=== PATIENT | female | born 1960 | race Caucasian/White ===

== ENCOUNTER → 2023-05-21 07:39 | Outpatient (REF) | payer OTHER, SELFPAY | LOC: RAD 07:39 | PROVIDERS: ATTENDING PHYSICIAN Family Medicine | DX: R10.84 Generalized abdominal pain (principal) | CPT/HCPCS: 74177; Q9967 ==

== ENCOUNTER → 2023-07-07 08:53 | Outpatient (REF) | payer OTHER, SELFPAY | LOC: RAD 08:53 | PROVIDERS: ATTENDING PHYSICIAN Internal Medicine Gastroenterology; FAMILY PHYSICIAN Family Medicine | DX: R19.4 Change in bowel habit (principal) | CPT/HCPCS: 74018 ==

== ENCOUNTER 2023-07-27 16:50 | Emergency (ER) | payer OTHER, SELFPAY ==
[2023-07-27 16:52] VITALS: BP 181/74
[2023-07-27 16:56] VITALS: BMI 20.7
[2023-07-27 17:00] VITALS: BP 160/78
[2023-07-27] MEDS: DECADRON 10 MG IV (17:08)
--- NOTE | 2023-07-27 17:21 | ED.GENMED ---
History of Present Illness
General
Chief Complaint: Allergic Reaction
Source: patient
Exam Limitations: none
Time Seen by Provider: 07/27/23 16:54
Travel History
Have you had any contact with someone who has COVID-19?: No
Do you have any symptoms of coronavirus? Fever > 100 degrees, chills, cough, shortness of breath, sore throat, loss of taste or smell, muscle aches, or headache?: No
History of Present Illness
History of Present Illness:
63-year-old female presents with possible allergic reaction. She developed swelling of the face difficulty breathing and swallowing about an hour prior to arrival. She was having trouble and called 911. Upon EMS arrival she was dyspneic and
sitting upright. They gave 0.3 of epi and 50 of Benadryl. She presents feeling improved. Per EMS she looks 95% better. Of note, patient restarted her lisinopril 3 days ago. She stopped this 3 weeks ago secondary to overall sensation of not
feeling well. She has been on lisinopril since the beginning of this year. There was no rash noted with this no vomiting.
Past History
Past History
ED Past Medical History: Psychiatric (Depression)
ED Past Surgical History: None
Social History
Tobacco: Non-smoker
Alcohol: Daily
Drug: None
Personal:
Phy Exam
Physical Exam
Physical Exam:
General: Well-appearing female no acute respiratory distress
HEENT: Normocephalic tongue is swollen uvula swollen no stridor no trismus no drooling
Heart: Regular rate and rhythm no murmurs
Lungs: Clear no wheeze
Extremities: No cyanosis
Course
Orders/Labs/Results
Orders:
Orders
07/27/23 17:04
Dexamethasone Sod Phosphate [Decadron] 10 mg IV NOW STA
07/27/23 20:23
Acetaminophen [Tylenol] 650 mg PO NOW STA
Gentamicin [Genoptic 0.3% Eye Drops] See Dose Instructions OPHTH NOW STA
Vital Signs
Initial and Last Documented VS:
Initial Vital Signs
Temp Pulse Resp BP Pulse Ox
98.2 F 105 18 181/74 100
07/27/23 16:52 07/27/23 16:52 07/27/23 16:52 07/27/23 16:52 07/27/23 16:52
Last Documented Vital Signs
Temp Pulse Resp BP Pulse Ox
98.2 F 94 17 147/71 98
07/27/23 16:52 07/27/23 19:45 07/27/23 19:45 07/27/23 19:10 07/27/23 19:45
MDM/Problems Addressed
Differential Diagnosis Includes:
Facial swelling tongue swelling. Consider allergic reaction versus angioedema
Patient already given epinephrine and Benadryl. Decadron ordered. Will continue to observe
*Critical Care Note
Total Time (30-74mins, 75-104mins- exclusive of procedures): Not Applicable
Update Note
Update Note:
Patient reexamined doing much better speech is clear vital signs stable. I do suspect angioedema potentially related to lisinopril. Advise she stop this medicine. Advise she follow-up with her family doctor. Prescription provided in the event of
recurrent reaction.
ED Attending Note
-
Portions of this chart may have been created with voice recognition software.� Occasional wrong word or��sound alike� substitutions may have occurred due to the inherent limitations of voice recognition software.
Discharge Plan
Departure
Patient Disposition: Home (Routine Discharge)
Date of Disposition: 07/27/23
Time of Disposition: 20:42
Patient with high blood pressure during this ER visit?: No
Discharge Problem:
Angioedema
Instructions: Adverse Drug Reactions, Adult (DC)
Prescriptions:
No Action
latanoprost 0.005 % Drops
1 drp BOTH EYES HS
olopatadine [Pataday Twice Daily Relief] 0.1 % Drops
1 drp BOTH EYES DAILYPRN PRN (Reason: eye irritation)
lisinopril 10 mg Tablet
10 mg PO QPM
naproxen sodium [Aleve] 220 mg Tablet
220 mg PO BID PRN (Reason: mild pain)
zolpidem 10 mg Tablet
5 mg PO HS
metformin 500 mg Tablet Extended Release 24hr
1,000 mg PO QPM
Cequa 0.09 % Dropperette
2 drp BOTH EYES Q12H
Patient Comments:
07/27/2023, prescribed 1 drp to both eyes Q12H but pt. applies 2 drp to both eyes Q12H.
Benefiber powder
1 tsp PO DAILY
Citrucel powder
1 dose PO BIDPRN PRN (Reason: constipation)
Patient Comments:
07/27/2023, one capful.
Colloid Of Silver [place]
2 spray LEFT EYE BIDPRN PRN (Reason: conjunctivitis)
Patient Comments:
07/27/2023, Colloid of Silver Throat and Nasal [place]; pt. applies 2 sprays to her left eye for conjunctivitis BIDPRN.
Referrals:
Rupert Shipley MD [Family Provider] -
Activity Restrictions/Additional Instructions:
Stop lisinopril. Please follow-up with your family doctor. Return if worse otherwise. Use drops into the left eye 1 drop 4 times a day
Interventions
Interventions:
*Risk Screen - Suicide Last Done: 07/27/23 17:04
*General Assessment Last Done: 07/27/23 17:04
*Neglect/Abuse Screening Last Done: 07/27/23 17:04
*ED COVID-19 Vaccine History Last Done: 07/27/23 17:04
ED- Cardiac Assessment Last Done: 07/27/23 17:04
ED- Pulmonary Assessment Last Done: 07/27/23 17:04
ED-Skin Assessment Last Done: 07/27/23 17:04
Discharge Date and Time
Print Language: IRAQI
[2023-07-27 19:10] VITALS: BP 147/71
[2023-07-27] MEDS: TYLENOL 650 MG PO (20:32)
[2023-07-27] MEDS: GENOPTIC 0.3% EYE DROPS 1 DROP OPHTH (20:32)
== END 2023-07-27 20:51 | disposition home or self-care (01) ==
LOC: EMR 16:50
PROVIDERS: EMERGENCY PHYSICIAN Student in an Organized Health Care Education/Training Program; FAMILY PHYSICIAN Family Medicine
DX: T78.3XXA Angioneurotic edema, initial encounter (principal); X58.XXXA Exposure to other specified factors, initial encounter
CPT/HCPCS: 99284; 96374

== ENCOUNTER → 2023-09-07 06:23 | Day surgery (SDC) | payer OTHER, SELFPAY | LOC: GI 06:23 | PROVIDERS: ATTENDING PHYSICIAN Internal Medicine Gastroenterology | DX: K52.9 Noninfective gastroenteritis and colitis, unspecified (principal); Z86.010 Personal history of colon polyps; K57.30 Diverticulosis of large intestine without perforation or abscess without bleeding; K64.8 Other hemorrhoids; K44.9 Diaphragmatic hernia without obstruction or gangrene; K31.7 Polyp of stomach and duodenum; K31.89 Other diseases of stomach and duodenum; R14.0 Abdominal distension (gaseous) | CPT/HCPCS: 45380; 43239; 88305; 88342 ==

== ENCOUNTER 2023-09-30 14:50 | Emergency (ER) | payer OTHER, SELFPAY ==
[2023-09-30] VITALS (12 sets, daily range): BP systolic 141–226; BP diastolic 65–109
[2023-09-30] MEDS: ADRENALIN 0.3 MG IM (15:11)
[2023-09-30] MEDS: BENADRYL 25 MG IV (15:12)
[2023-09-30] MEDS: PEPCID 20 MG IV (15:12)
[2023-09-30] MEDS: SOLU-MEDROL PF 125 MG IV (15:13)
--- NOTE | 2023-09-30 15:18 | ED.GENMED ---
History of Present Illness
<Jeremy Fernandez PA-C - Last Filed: 09/30/23 17:33>
General
Chief Complaint: Allergic Reaction
Source: patient and spouse
Time Seen by Provider: 09/30/23 15:05
History of Present Illness
History of Present Illness:
63-year-old female with past medical history of hypertension and prediabetes presenting to the emergency department for evaluation after she developed sudden onset difficulty breathing and sensation of tongue swelling similar to previous episode
back in July. Patient took 125 mg tablet of Benadryl and brought her to the ER for further evaluation. states that he forgot that patient had an EpiPen at home unfortunately did not use this prior to arrival. Patient stating she
is having some difficulty talking due to the swelling sensation and notes minimal relief with the 25 mg of Benadryl she did states that the last time this happened it was thought to be related to the lisinopril that she had been on but states she
has been taking this since July.
Past History
<Jeremy Fernandez PA-C - Last Filed: 09/30/23 17:33>
Past History
ED Past Medical History: HTN, NIDDM and Psychiatric (Depression)
ED Past Surgical History: Orthopedic and Other
Social History
Tobacco: Non-smoker
Alcohol: Daily
Drug: None
Personal:
Living: with family
Review of Systems
<Jeremy Fernandez PA-C - Last Filed: 09/30/23 17:33>
Review of Systems
All Other Systems: ROS reviewed and negative except as documented in HPI and ROS
Phy Exam
<Jeremy Fernandez PA-C - Last Filed: 09/30/23 17:33>
Physical Exam
Physical Exam:
GENERAL: Alert , appears uncomfortable, no tachypnea, no stridor, laying reclined
EYE: conjunctiva clear
NECK: Supple
ENT: o/p clr, mmm. Some mild edema to the tongue diffusely, posterior airway without any edema, no lip edema, no trismus or stridor
CARDIAC: Regular rate and rhythm
LUNGS: Clear breath sounds bilaterally, no acute respiratory distress, no wheezes/rales/rhonchi
NEUROLOGICAL: Alert and oriented
SKIN: Warm and dry, skin intact. Blotchy erythema along the anterior neck, lip and chin
MUSCULOSKELETAL: well perfused.
PSYCH: Normal and appropriate interaction.
Scores
<Jeremy Fernandez PA-C - Last Filed: 09/30/23 17:33>
Heart Failure Risk
Heart Failure Risk Score: Not Applicable
Heart Score for Chest Pain Patients
STEMI patient?: Not applicable
Withdrawal Assessment of Alcohol
Withdrawal Assessment Completed?: Not applicable
Course
<Jeremy Fernandez PA-C - Last Filed: 09/30/23 17:33>
Orders/Labs/Results
Orders:
Orders
09/30/23 15:08
Diphenhydramine [Benadryl] 50 mg .ROUTE .STK-MED ONE
EPINEPHrine PF [Adrenalin] 1 mg .ROUTE .STK-MED ONE
MethylPREDNISolone PF [Solu-Medrol Pf] 125 mg .ROUTE .STK-MED ONE
09/30/23 15:09
Diphenhydramine [Benadryl] 25 mg IV NOW STA
EPINEPHrine PF [Adrenalin] 0.3 mg IM NOW STA
Famotidine [Pepcid] 20 mg .ROUTE .STK-MED ONE
Famotidine [Pepcid] 20 mg IV NOW STA
MethylPREDNISolone PF [Solu-Medrol Pf] 60 mg IV NOW STA
09/30/23 15:11
MethylPREDNISolone PF [Solu-Medrol Pf] 125 mg IV NOW STA
09/30/23 15:39
Complete Blood Count/With Diff Urgent
Comprehensive Metabolic Panel Urgent
09/30/23 17:24
Acetaminophen [Tylenol] 1,000 mg PO NOW STA
Abnormal Lab Results
09/30/23
15:39
RBC 4.08 L 10^6/uL
(4.20-5.40)
Hct 36.3 L %
(37.0-47.0)
Plt Count 407 H 10^3/uL
(130-400)
Absolute Monos (auto) 0.7 H 10^3/uL
(0.1-0.6)
Chloride 95 L mmol/L
(98-107)
Glucose 146 H mg/dl
(70-99)
Calcium 10.3 H mg/dl
(8.4-10.2)
Albumin 5.3 H g/dl
(3.5-5.0)
09/30/23 15:39
09/30/23 15:39
Vital Signs
Initial and Last Documented VS:
Initial Vital Signs
Pulse Resp BP Pulse Ox
95 25 226/107 96
09/30/23 14:57 09/30/23 14:57 09/30/23 14:57 09/30/23 14:57
Last Documented Vital Signs
Pulse Resp BP Pulse Ox
90 18 158/75 98
09/30/23 16:00 09/30/23 16:00 09/30/23 16:00 09/30/23 16:00
<Leora Yang, DO - Last Filed: 09/30/23 15:42>
Orders/Labs/Results
Orders:
Orders
09/30/23 15:08
Diphenhydramine [Benadryl] 50 mg .ROUTE .STK-MED ONE
EPINEPHrine PF [Adrenalin] 1 mg .ROUTE .STK-MED ONE
MethylPREDNISolone PF [Solu-Medrol Pf] 125 mg .ROUTE .STK-MED ONE
09/30/23 15:09
Diphenhydramine [Benadryl] 25 mg IV NOW STA
EPINEPHrine PF [Adrenalin] 0.3 mg IM NOW STA
Famotidine [Pepcid] 20 mg .ROUTE .STK-MED ONE
Famotidine [Pepcid] 20 mg IV NOW STA
MethylPREDNISolone PF [Solu-Medrol Pf] 60 mg IV NOW STA
09/30/23 15:11
MethylPREDNISolone PF [Solu-Medrol Pf] 125 mg IV NOW STA
09/30/23 15:39
Complete Blood Count/With Diff Urgent
Comprehensive Metabolic Panel Urgent
09/30/23 17:24
Acetaminophen [Tylenol] 1,000 mg PO NOW STA
Abnormal Lab Results
09/30/23
15:39
RBC 4.08 L 10^6/uL
(4.20-5.40)
Hct 36.3 L %
(37.0-47.0)
Plt Count 407 H 10^3/uL
(130-400)
Absolute Monos (auto) 0.7 H 10^3/uL
(0.1-0.6)
Chloride 95 L mmol/L
(98-107)
Glucose 146 H mg/dl
(70-99)
Calcium 10.3 H mg/dl
(8.4-10.2)
Albumin 5.3 H g/dl
(3.5-5.0)
09/30/23 15:39
09/30/23 15:39
Vital Signs
Initial and Last Documented VS:
Initial Vital Signs
Pulse Resp BP Pulse Ox
95 25 226/107 96
09/30/23 14:57 09/30/23 14:57 09/30/23 14:57 09/30/23 14:57
Last Documented Vital Signs
Pulse Resp BP Pulse Ox
90 18 158/75 98
09/30/23 16:00 09/30/23 16:00 09/30/23 16:00 09/30/23 16:00
<Jeremy Fernandez PA-C - Last Filed: 09/30/23 17:33>
MDM/Problems Addressed
Differential Diagnosis Includes:
Angioedema unspecified, medication interaction, no concern for infection
MDM/Problems Addressed:
63-year-old female presenting to the emergency department for evaluation of suspected angioedema without clear etiology. Patient arrives complaining of tongue swelling and difficulty speaking. There is no stridor or trismus on exam. Patient did
take 25 mg of Benadryl prior to arrival. EpiPen administered in addition to 25 mg of Benadryl, Pepcid and Solu-Medrol. Will monitor closely. Disposition pending
<Jeremy Fernandez PA-C - Last Filed: 09/30/23 17:33>
*Pulse Oximetry
Patient hypoxic: no
*Account Underwriter Interpretation
Rate: tachycardiac
Rhythm: sinus
*Critical Care Note
Total Time (30-74mins, 75-104mins- exclusive of procedures): 30
comment:
Critical care statement: A total of 30 minutes of critical care time was provided for this patient. This includes management of unstable vital signs, evaluation of the patient at bedside, reviewing the patient's pertinent medical records, discussion
with consultants, review of old EKGs and review of pertinent medical records. This time with separate from time utilized to perform the aforementioned documented procedures
Data Reviewed
Review of Other/Old Records Reveals: Records
<Jeremy Fernandez PA-C - Last Filed: 09/30/23 17:33>
Patient Management
Escalation/DeEscalation of care consider admission/obs:
On multiple reevaluations patient continues without any signs of worsening symptoms and notes continued improvement. Tongue edema has resolved. I notified patient's primary care provider about presentation to the ER and he will ensure close
follow-up. I also provided the patient with information for an public health aide to follow-up given this is the second time without any specified etiology. Patient does note that she did have an apple earlier today and believes she may have had an apple
last time when the symptoms started. Patient was advised to stay away from apples until she is tested for possible allergy. Aware of return precautions to the ER. Stable for home. Prescriptions for prednisone and EpiPen were sent to pharmacy as
well.
ED Attending Note
<Jeremy Fernandez PA-C - Last Filed: 09/30/23 17:33>
-
Portions of this chart may have been created with voice recognition software.� Occasional wrong word or��sound alike� substitutions may have occurred due to the inherent limitations of voice recognition software.
<Leora Yang DO - Last Filed: 09/30/23 15:42>
ED Attending Note
Patient seen and examined by attending physician: Yes
I performed the substantive portion of visit, reviewed & personally made and approve the management plan that is documented in note by myself or GUILLERMO.: Yes
I performed a history and physical exam of patient and discussed management with resident, I reviewed resident's note and agree with documented findings and plan of care.: Yes
ED Attending Note:
Patient seen and evaluated at bedside, 63-year-old female with history of hypertension presenting for concern of allergic reaction. Prior to arrival, patient started to have tongue swelling and throat discomfort. Noted similar reaction in July, of
unclear etiology. At that time patient had been administered epinephrine with improvement of symptoms. Patient had previously been on an SIN inhibitor, which has since been discontinued. She has never had formal allergy testing. She denies any
new exposures, had an apple prior to arrival. Reports throat discomfort and some shortness of breath. Denies diffuse rash. Denies chest pain. She took Benadryl prior to arrival. Vital signs significant for hypertension.
On exam, patient in no story distress, however does have some swelling to the tongue with slight muffling of the voice. No oropharyngeal swelling. No stridorous breath sounds. No wheezing. Given tongue swelling and muffling of the voice, concern
again for anaphylaxis. This reason, plan for epinephrine and steroids as well as Pepcid and redosed Benadryl. Plan for continued close monitoring.
15:40 - After epinephrine administration, reports some improvement of symptoms. Will continue to monitor.
Discharge Plan
Departure
Patient Disposition: Home (Routine Discharge)
Date of Disposition: 09/30/23
Time of Disposition: 17:19
Patient with high blood pressure during this ER visit?: Yes
Discharge Problem:
Allergic reaction
Instructions: Anaphylaxis - Discharge instructions
Prescriptions:
New
prednisone 10 mg tablet
10 mg PO DIRECTED Qty: 21 0RF
Rx Instructions:
6 tabs day 1, 5 tabs day 2, 4 tabs day 3, 3 tabs day 4, 2 tabs day 5, 1 tab day 6
epinephrine [EpiPen] 0.3 mg/0.3 mL auto-injector
0.3 mg IM .STAT PRN (Reason: anaphylaxis) Qty: 1 0RF
No Action
latanoprost 0.005 % Drops
1 drp BOTH EYES HS
olopatadine [Pataday Twice Daily Relief] 0.1 % Drops
1 drp BOTH EYES DAILYPRN PRN (Reason: eye irritation)
lisinopril 10 mg Tablet
10 mg PO QPM
naproxen sodium [Aleve] 220 mg Tablet
220 mg PO BID PRN (Reason: mild pain)
zolpidem 10 mg Tablet
5 mg PO HS
metformin 500 mg Tablet Extended Release 24hr
1,000 mg PO QPM
Cequa 0.09 % Dropperette
2 drp BOTH EYES Q12H
Patient Comments:
07/27/2023, prescribed 1 drp to both eyes Q12H but pt. applies 2 drp to both eyes Q12H.
Benefiber powder
1 tsp PO DAILY
Citrucel powder
1 dose PO BIDPRN PRN (Reason: constipation)
Patient Comments:
07/27/2023, one capful.
Colloid Of Silver [place]
2 spray LEFT EYE BIDPRN PRN (Reason: conjunctivitis)
Patient Comments:
07/27/2023, Colloid of Silver Throat and Nasal [place]; pt. applies 2 sprays to her left eye for conjunctivitis BIDPRN.
Referrals:
Rupert Shipley MD [Family Provider] -
Mikki Negro MD [Active] -
(Diesel Engine Engineer
)
Interventions
Interventions:
*Risk Screen - Suicide Last Done: 09/30/23 15:11
*General Assessment Last Done: 09/30/23 15:11
*Neglect/Abuse Screening Last Done: 09/30/23 15:11
*ED COVID-19 Vaccine History Last Done: 09/30/23 15:11
ED- Cardiac Assessment Last Done: 09/30/23 15:11
ED- Pulmonary Assessment Last Done: 09/30/23 15:11
ED-Skin Assessment Last Done: 09/30/23 15:11
Discharge Date and Time
Print Language: MICRONESIAN
[2023-09-30 15:45] LABS: % Basophils 0.7 % (0-2); % Eosinophils 2.5 % (0-6); % Immature Granulocytes 0.2 % (0-0.5); % Lymphocytes 31.3 % (20.5-51.1); % Monocytes 7.4 % (1.7-9.3); % Neutrophils 57.9 % (42.2-75.2); Absolute Basophils 0.1 10^3/uL (0-0.2); Absolute Eosinophils 0.2 10^3/uL (0-0.7); Absolute Lymphocytes 2.9 10^3/uL (1.2-3.4); Absolute Monocytes 0.7 10^3/uL (0.1-0.6); Absolute Neutrophils 5.3 10^3/uL (1.4-6.5); Hematocrit 36.3 % (37.0-47.0); Hemoglobin 12.4 g/dL (12.0-16.0); Mean Corp Hgb Conc. 34.2 g/dL (33.0-37.0); Mean Corpuscular Hgb 30.4 pg (27.0-31.0); Mean Platelet Volume 10.4 fL (7.4-10.4); Nucleated Red Blood Cells % 0 %; Platelet Count 407 10^3/uL (130-400); Red Blood Cell Count 4.08 10^6/uL (4.20-5.40); Red Cell Dist. Width 13.1 % (11.5-14.5); White Blood Cell Count 9.2 10^3/uL (4.8-10.8)
[2023-09-30 16:00] LABS: ALT (SGPT) 19 U/L (0-35); AST (SGOT) 34 U/L (14-36); Albumin 5.3 g/dl (3.5-5.0); Alkaline Phosphatase 100 U/L (38-126); Blood Urea Nitrogen 14 mg/dl (7-17); Calcium 10.3 mg/dl (8.4-10.2); Carbon Dioxide 24 mmol/L (22-30); Chloride 95 mmol/L (98-107); Glucose 146 mg/dl (70-99); Potassium 3.8 mmol/L (3.5-5.1); Sodium 135 mmol/L (135-145); Total Bilirubin 0.7 mg/dl (0.2-1.3); Total Protein 7.9 g/dl (6.3-8.2); eGFR > 60.00
[2023-09-30] MEDS: TYLENOL 1000 MG PO (17:44)
== END 2023-09-30 18:45 | disposition home or self-care (01) ==
LOC: EMR 14:50
PROVIDERS: Physician Assistant Medical; EMERGENCY PHYSICIAN Student in an Organized Health Care Education/Training Program; FAMILY PHYSICIAN Family Medicine
DX: T78.40XA Allergy, unspecified, initial encounter (principal); R22.0 Localized swelling, mass and lump, head; R06.02 Shortness of breath; R47.9 Unspecified speech disturbances; I10 Essential (primary) hypertension; Z88.2 Allergy status to sulfonamides
CPT/HCPCS: 99291; 96374; 96375 ×2; 96372; 80053; 85025

== ENCOUNTER → 2024-03-01 07:43 | Outpatient (REF) | payer OTHER, SELFPAY | LOC: RAD 07:43 | PROVIDERS: ATTENDING PHYSICIAN Physician Assistant; FAMILY PHYSICIAN Family Medicine | DX: R68.81 Early satiety (principal) | CPT/HCPCS: 78264; A9541 ==

== ENCOUNTER → 2024-05-29 13:16 | Outpatient (REF) | payer OTHER, SELFPAY | LOC: HWWDC 13:16 | PROVIDERS: ATTENDING PHYSICIAN Nurse Practitioner Adult Health; FAMILY PHYSICIAN Family Medicine; REFERRING PHYSICIAN Nurse Practitioner Family | DX: Z12.31 Encounter for screening mammogram for malignant neoplasm of breast (principal); Z80.3 Family history of malignant neoplasm of breast; M81.0 Age-related osteoporosis without current pathological fracture; E11.9 Type 2 diabetes mellitus without complications; E04.1 Nontoxic single thyroid nodule; R53.83 Other fatigue | CPT/HCPCS: 76536; 77063; 77067; 77080 ==

== ENCOUNTER → 2024-05-31 07:06 | Outpatient (REF) | payer OTHER, SELFPAY | LOC: MRI 3T 07:06 | PROVIDERS: ATTENDING PHYSICIAN Family Medicine | DX: R51.9 Headache, unspecified (principal) | CPT/HCPCS: 70551 ==

== ENCOUNTER 2024-06-06 12:03 | Inpatient (IN) | payer OTHER, SELFPAY ==
[2024-06-06 06:35] VITALS: BP 160/85
--- NOTE | 2024-06-06 07:15 | ED.GENMED ---
History of Present Illness
General
Chief Complaint: Abnormal Lab Value
Source: patient, records and spouse
Exam Limitations: none
Time Seen by Provider: 06/06/24 06:43
Nursing documentation reviewed up to this point in time: agreed with
History of Present Illness
History of Present Illness:
64-year-old female hypertension type II diabetic anxiety depression presents with subacute onset of dizziness confusion since February of this year, this diagnosed with low sodium managed by PCP SSRI was stopped, symptoms persisted had an MRI of the
brain which was unremarkable no fevers, no cough, nondrinker non-smoker, patient outpatient blood work sodium 123 PCP referred to the ER
Past History
Past History
ED Past Medical History: HTN, NIDDM and Psychiatric (Depression)
ED Past Surgical History: Orthopedic and Other
Social History
Tobacco: Non-smoker
Alcohol: Occasional
Drug: None
Personal:
Living: with family
Employment: Employed
Review of Systems
Review of Systems
All Other Systems: Not applicable
Constitutional: Reports fatigue; Denies fever
EENT: Reports no symptoms
Respiratory: Reports no symptoms
Cardiac: Reports no symptoms
ABD/GI: Reports no symptoms
: Reports no symptoms
Neurological: Reports dizzy and weakness
Endocrine: Reports no symptoms
Phy Exam
Physical Exam
Physical Exam:
Physical Exam
General: no apparent distress, not acutely ill
Neck: No JVD
Heart: s1/s2 regular rate and rhythm, no murmur. equal radial pulses.
Lungs: no acute respiratory distress. clear bilaterally
Abdomen: Nontender
Neuro: alert and oriented. Slightly confused, moves all extremities
Skin: no rash
Psychiatric: well kept. interactive and cooperative
Extremities: no edema. No edema
Course
Orders/Labs/Results
Orders:
Orders
06/06/24 06:56
CR Chest - 2 Views Urgent
Comment:
Reason For Exam: low Na
06/06/24 06:57
Electrocardiogram (*1) Urgent
Reason for Study: QTc Monitoring
EKG- Treatment ONCE
06/06/24 07:03
Complete Blood Count/With Diff Urgent
Comprehensive Metabolic Panel Urgent
Cortisol, Random Urgent
Serum Osmolality Urgent
TSH Urgent
06/06/24 08:03
NEPHROLOGY CONSULT Routine
Consulting Provider: Rony Prieto
Was physician already notified: Yes
06/06/24 08:51
Osmolality, Random Urine Urgent
Date Specimen was Collected: 06/06/24
Time Specimen was Collected: 08:38
Urine Sodium Urgent
Date Specimen was Collected: 06/06/24
Time Specimen was Collected: 08:38
Abnormal Lab Results
06/06/24 06/06/24
07:03 08:51
RBC 3.82 L 10^6/uL
(4.20-5.40)
Hgb 11.7 L g/dL
(12.0-16.0)
Hct 33.1 L %
(37.0-47.0)
Plt Count 401 H 10^3/uL
(130-400)
Abs Immat Gran (auto) 0.1 H 10^3/uL
(0-0.05)
Absolute Monos (auto) 0.7 H 10^3/uL
(0.1-0.6)
Immature Gran % 0.8 H %
(0-0.5)
Sodium 127 L mmol/L
(135-145)
Potassium 5.2 H mmol/L
(3.5-5.1)
Chloride 93 L mmol/L
(98-107)
Glucose 197 H mg/dl
(70-99)
Serum Osmolality 271 L mOsm/kg
(275-300)
Urine Osmolality 185 L mOsm/kg
(300-900)
06/06/24 07:03
06/06/24 07:03
Vital Signs
Initial and Last Documented VS:
Initial Vital Signs
Temp Pulse Resp BP Pulse Ox
98 F 68 18 160/85 100
06/06/24 06:35 06/06/24 06:35 06/06/24 06:35 06/06/24 06:35 06/06/24 06:35
Last Documented Vital Signs
Temp Pulse Resp BP Pulse Ox
98 F 68 16 165/78 100
06/06/24 06:35 06/06/24 08:52 06/06/24 08:52 06/06/24 08:52 06/06/24 08:52
MDM/Problems Addressed
Differential Diagnosis Includes:
SIADH, water intoxication medication effect iatrogenic
MDM/Problems Addressed:
Presumed low sodium
Chronic conditions affecting care: DM, HTN and Psychiatric illness
Acute Exacerbation and/or Progression of Chronic Illness: DM, HTN and Psychiatric illness
*Radiology
Radiology exam reviewed: preliminary read by ED provider
*Pulse Oximetry
Patient hypoxic: no
*EKG
Interpretation: normal
Comparison EKG: no comparison EKG present
Heart Rate: 78
Rate: normal
Rhythm: sinus
Ischemia: no ischemia
*Risk Consultant Interpretation
Rate: normal
Interpretation: normal
Heart Rate: 78
Rhythm: sinus
*Critical Care Note
Total Time (30-74mins, 75-104mins- exclusive of procedures): Not Applicable
Data Reviewed
Review of Other/Old Records Reveals: Labs
Source: patient and spouse
ED Attending Note
-
Portions of this chart may have been created with voice recognition software.� Occasional wrong word or��sound alike� substitutions may have occurred due to the inherent limitations of voice recognition software.
Discharge Plan
Departure
Patient Disposition: Admit
Date of Disposition: 06/06/24
Time of Disposition: 08:16
Admit to: Med/Surg
Presentation/result/management discussed w/ accepting MD/DO: Hospitalist
Patient with high blood pressure during this ER visit?: Yes
Condition: Fair
Discharge Problem:
Acute hyponatremia
Prescriptions:
No Action
latanoprost 0.005 % Drops
1 drp LEFT EYE HS
zolpidem 10 mg Tablet
10 mg PO HS
metformin 500 mg Tablet Extended Release 24hr
1,000 mg PO QPM
Theragen Tablet
1 tab PO DAILY
amlodipine [Norvasc] 2.5 mg Tablet
2.5 mg PO DAILY
Flarex 0.1 % Drops,Suspension
1 drp BOTH EYES DAILY
valsartan 160 mg Tablet
160 mg PO DAILY
Refresh Optive 0.5-0.9 % Drops
1 drp BOTH EYES TID
Referrals:
Rupert Shipley MD [Family Provider] -
Interventions
Interventions:
*Risk Screen - Suicide Last Done: 06/06/24 06:35
*General Assessment Last Done: 06/06/24 07:14
*Neglect/Abuse Screening Last Done: 06/06/24 06:35
*ED- Fall Risk Assessment Last Done: 06/06/24 07:14
*ED COVID-19 Vaccine History Last Done: 06/06/24 06:40
Discharge Date and Time
Print Language: SINHALA
[2024-06-06 07:19] LABS: % Basophils 1.1 % (0-2); % Eosinophils 1.5 % (0-6); % Immature Granulocytes 0.8 % (0-0.5); % Lymphocytes 20.9 % (20.5-51.1); % Monocytes 8.7 % (1.7-9.3); Absolute Basophils 0.1 10^3/uL (0-0.2); Absolute Eosinophils 0.1 10^3/uL (0-0.7); Absolute Immature Granulocytes 0.1 10^3/uL (0-0.05); Absolute Lymphocytes 1.8 10^3/uL (1.2-3.4); Absolute Monocytes 0.7 10^3/uL (0.1-0.6); Absolute Neutrophils 5.6 10^3/uL (1.4-6.5); Hematocrit 33.1 % (37.0-47.0); Hemoglobin 11.7 g/dL (12.0-16.0); Mean Corp Hgb Conc. 35.3 g/dL (33.0-37.0); Mean Corpuscular Hgb 30.6 pg (27.0-31.0); Mean Corpuscular Volume 86.6 fL (81.0-99.0); Mean Platelet Volume 9.6 fL (7.4-10.4); Nucleated Red Blood Cells % 0 %; Platelet Count 401 10^3/uL (130-400); Red Blood Cell Count 3.82 10^6/uL (4.20-5.40); Red Cell Dist. Width 12.2 % (11.5-14.5); White Blood Cell Count 8.4 10^3/uL (4.8-10.8)
[2024-06-06 07:34] LABS: ALT (SGPT) 19 U/L (0-35); AST (SGOT) 23 U/L (14-36); Albumin 4.3 g/dl (3.5-5.0); Alkaline Phosphatase 77 U/L (38-126); Blood Urea Nitrogen 11 mg/dl (7-17); Carbon Dioxide 27 mmol/L (22-30); Chloride 93 mmol/L (98-107); Glucose 197 mg/dl (70-99); Potassium 5.2 mmol/L (3.5-5.1); Sodium 127 mmol/L (135-145); Total Bilirubin 0.6 mg/dl (0.2-1.3); Total Protein 6.8 g/dl (6.3-8.2); eGFR > 60.00
[2024-06-06 08:04] LABS: TSH 1.94 uIU/ml (0.47-4.68)
--- NOTE | 2024-06-06 08:19 | HPS.HSE ---
Family Physician
-
Family Physician: Rupert Shipley
Chief Complaint
-
Low sodium
History of Present Illness
64-year-old female hypertension type II diabetic anxiety depression presents with subacute onset of dizziness confusion since February of this year, diagnosed with low sodium was managed by PCP, SSRI was stopped a month ago, symptoms persisted had an
MRI of the brain which was unremarkable no fevers, no cough, nondrinker non-smoker, patient outpatient blood work sodium 123 PCP referred to the ER. Retested 127 here corrected for hyperglycemia, 129. Mild Hyperkalemia 5.2 noted. Patient also
endorses history polydipsia polyuria. Reports significant stressors in life including sister recently diagnosed with cancer. also has notices decline in cognitive function over past 6 month.
Medical History
Past Medical History
Past Medical History: Reports Other (as above)
Past Surgical History: Reports Other (as abvoe)
Social History
Tobacco: Non-smoker
Alcohol: Occasional
Drug: None
Personal:
Living: With Family
Employment: Employed
Family History
Family History: Not pertinent (reviewed)
Allergies / Home Medications
Allergies reflects when Allergies were last updated in [facility]
Home Medications with original date entered in [facility]
Allergy/Medication List:
Allergies
Allergy/AdvReac Type Severity Reaction Status Date / Time
apple Allergy Anaphylaxis Verified 06/06/24 06:38
Sulfa (Sulfonamide Allergy Hives Verified 06/06/24 06:38
Antibiotics)
Home Medications
latanoprost 0.005 % eye drops 1 drp LEFT EYE HS 07/27/23
metformin 500 mg tablet,extended release 24hr (osmotic) 1,000 mg PO QPM 07/27/23
zolpidem 10 mg tablet 10 mg PO HS 07/27/23
amlodipine 2.5 mg tablet (Norvasc) 2.5 mg PO DAILY 06/06/24
carboxymethylcellulose 0.5 %-glycerin 0.9 % eye drops (Refresh Optive) 1 drp BOTH EYES TID 06/06/24
fluorometholone acetate 0.1 % eye drops,suspension (Flarex) 1 drp BOTH EYES DAILY 06/06/24
therapeutic multivitamin 1 tab PO DAILY 06/06/24
valsartan 160 mg tablet 160 mg PO DAILY 06/06/24
Review of Systems
-
A 12 point ROS was completed and negative except as noted: Yes
Constitutional: Reports Other (As below)
Physical Exam
Vital Signs
Vital Signs
Temp Pulse Resp BP Pulse Ox
98 F 68 16 160/85 100
06/06/24 06:35 06/06/24 06:35 06/06/24 08:11 06/06/24 06:35 06/06/24 06:35
Physical Exam
General: Other (As below)
Laboratory Results
-
06/06/24 07:03
06/06/24 07:03
Laboratory Results
Total Bilirubin 0.6 mg/dl (0.2-1.3) 06/06/24 07:03
AST 23 U/L (14-36) 06/06/24 07:03
ALT 19 U/L (0-35) 06/06/24 07:03
Alkaline Phosphatase 77 U/L (38-126) 06/06/24 07:03
Impression/Plan
-
ROS
General: Denies fever chills night sweats unexpected weight loss
Neuro: Denies seizure shaking loss of consciousness dizziness vertigo
Psych: Reports anxiety depression intermittent confusion
Endocrine: Reports polyuria polydipsia
HEENT: Denies blindness visual disturbances epistaxis
Pulmonary: denies coughing hemoptysis sneezing sob dyspnea on exertion
Cardiovascular: denies chest pain palpitations leg swelling
Hematology: denies signs symptoms of anemia easy bruising/bleeding
Gastrointestinal: denies nausea vomiting diarrhea constipation hematemesis hematochezia melena
Genito-Urinary: denies retention incontinence dysuria
Musculoskeletal: denies joint pain weakness
Dermatology: denies rash laceration bruising
Physical Exam
General: No pallor, cyanosis, or jaundice.
HEENT: Throat clear. PERRLA Normocephalic atraumatic
NECK: Supple. No JVD Carotid Bruits
RESPIRATORY: Lungs clear to auscultation. No crackles wheezes stridor
CVS: S1, S2 normal. RRR. No murmur, rub or gallop.
ABDOMEN: Soft, non-tender. No distension. BS+/normal.
EXTREMITIES: No peripheral cyanosis or edema.
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 Conversant coherent
IMPRESSION:
64-year-old female hypertension type II diabetic anxiety depression presents with subacute onset of dizziness confusion since February of this year, diagnosed with low sodium was managed by PCP, SSRI was stopped a month ago, symptoms persisted had an
MRI of the brain which was unremarkable no fevers, no cough, nondrinker non-smoker, patient outpatient blood work sodium 123 PCP referred to the ER. Retested 127 here corrected for hyperglycemia, 129. Mild Hyperkalemia 5.2 noted. Patient also
endorses history polydipsia polyuria. Reports significant stressors in life including sister recently diagnosed with cancer. also has notices decline in cognitive function over past 6 month.
PLAN:
#Hyponatremia
TeleMed
Nephro eval
Fluid restriction
Hypertonic saline as per nephro
# Hypertension
#Mild hyperkalemia
Monitor K
Hold home valsartan
Resume home amlodipine with holding parameters
#Diabetes
Update A1c
Low-dose sliding scale
Continue home med metformin
#Anxiety depression
#Question possible pseudodementia
Continue home bedtime zolpidem
P.o. Ativan as needed anxiety
DVT prophylaxis Lovenox
Full code
Discussed with patient and patient's Johnson
I spent a total of 80 minutes with the patient or on the floor. More than 50% of this time involved counseling and coordination of care.
[2024-06-06 08:33] LABS: Osmolality Serum 271 mOsm/kg (275-300)
[2024-06-06 08:52] VITALS: BP 165/78
[2024-06-06 09:02] LABS: Cortisol, Random 22.4 ug/dl
[2024-06-06 09:04] LABS: Osmolality Urine 185 mOsm/kg (300-900)
[2024-06-06 09:15] LABS: Urine Sodium 35 mmol/L (30-90)
[2024-06-06] MEDS: SODIUM CHLORIDE 3% 250 IV (11:13)
--- NOTE | 2024-06-06 11:13 | W.CON.NEPH ---
Consultation
-
Date/Time Consultation Requested: 06/06/2024 10 AM
Date/Time Consultation Performed: 06/06/2024 11 AM
Requesting Provider: Dr. Coleman
Performing Provider: Dr. Prieto
Reason for Consultation: Hyponatremia
Medical History
-
Chief Complaint: Hyponatremia
History of Present Illness:
This is a 64-year-old female who has hypertension on a multidrug regimen typically well-controlled, significant anxiety previously on SSRI therapy which did not impact her anxiety, prediabetes on metformin therapy. Earlier this year she says that
she was told by her primary that her sodium level was low, noted at 127. It was believed that this may have been due to her antidepressant therapy and it was modified. However follow-up blood work had shown sodium level to have dropped to 124 and
she was sent to the hospital for treatment. Her also notes that she has been more confused lately as well. She does have a fair amount of fluid intake each day, close to 90 ounces between wine, coffee, smoothie, water. She has no pain or
nausea or vomiting. She does not use NSAIDs.
Past Medical History
Hypertension
Anxiety
Prediabetes
Atrophic vaginitis
Hyperlipidemia
Thyroid nodule
Glaucoma
Toe surgery
Social History
Tobacco: Non-Smoker
Alcohol: None
Family History
Family History: Not Pertinent
Allergies / Home Medications
Allergy/AdvReac Type Severity Reaction Status Date / Time
apple Allergy Anaphylaxis Verified 06/06/24 06:38
Sulfa (Sulfonamide Allergy Hives Verified 06/06/24 06:38
Antibiotics)
�Medication �Instructions �Recorded �Confirmed �Type
latanoprost 0.005 % eye drops 1 drp LEFT EYE HS 07/27/23 06/06/24 History
metformin 500 mg tablet,extended 1,000 mg PO QPM 07/27/23 06/06/24 History
release 24hr (osmotic)
zolpidem 10 mg tablet 10 mg PO HS 07/27/23 06/06/24 History
amlodipine 2.5 mg tablet (Norvasc) 2.5 mg PO DAILY 06/06/24 06/06/24 History
carboxymethylcellulose 0.5 1 drp BOTH EYES TID 06/06/24 06/06/24 History
%-glycerin 0.9 % eye drops
(Refresh Optive)
fluorometholone acetate 0.1 % eye 1 drp BOTH EYES DAILY 06/06/24 06/06/24 History
drops,suspension (Flarex)
therapeutic multivitamin 1 tab PO DAILY 06/06/24 06/06/24 History
valsartan 160 mg tablet 160 mg PO DAILY 06/06/24 06/06/24 History
Review of Systems
-
Confusion, poor appetite, 5 pound loss in 6 months
All other systems: Negative unless noted
Physical Exam
Vital Signs
Vital Signs
Temp Pulse Resp BP Pulse Ox
98 F 68 16 165/78 100
06/06/24 06:35 06/06/24 08:52 06/06/24 10:20 06/06/24 08:52 06/06/24 08:52
Lab Results
WBC 8.4 10^3/uL (4.8-10.8) 06/06/24 07:03
RBC 3.82 10^6/uL (4.20-5.40) L 06/06/24 07:03
Hgb 11.7 g/dL (12.0-16.0) L 06/06/24 07:03
Hct 33.1 % (37.0-47.0) L 06/06/24 07:03
Plt Count 401 10^3/uL (130-400) H 06/06/24 07:03
eGFR > 60.00 06/06/24 07:03
Albumin 4.3 g/dl (3.5-5.0) 04/29/25 07:03
09/01/2022 sodium 135
04/15/2023 sodium 131
11/04/2023 sodium 134
05/01/2024 sodium 127
06/01/2024 sodium 124
Laboratory Tests
06/06/24
08:51
Urine Osmolality 185 L
Urine Sodium 35
Physical Exam
Patient is awake alert oriented and in no distress. Mood and affect were pleasant, insight and judgment were good. Pupils are equal round and reactive to light, extraocular movements are intact, sclera were anicteric. Hearing was normal, ears and
nose are intact. Oropharynx was clear. Neck was supple with trachea midline and no thyromegaly. Heart was regular rate and rhythm without rubs. Lower extremities without edema. Lungs were clear to auscultation bilaterally and with normal
excursion. Abdomen was soft, nontender, with normal active bowel sounds, and no hepatosplenomegaly. Skin was without rash and with normal turgor.
Data Reviewed
-
Radiology: Image Personally Visualized and interpreted (Chest x-ray 06/06/2024 by my read no acute disease)
MRI: Report Reviewed by me (MRI brain 05/31/2024 no acute abnormality)
Medical Tests (Nuc Med, Echo etc): Image Personally Visualized and interpreted (EKG 06/06/2024 by my reading sinus rhythm first-degree AV block left axis deviation)
Labs: Labs Reviewed by me
Old Records: Reviewed
Assessment/Plan
-
Assessment
Hyponatremia
Hypertension
Anxiety
Hyperlipidemia
Prediabetes
Plan
Hypertonic saline 30 cc/h
Serial BMP
Fluid restriction 48 ounces
May consider Samsca tomorrow if sodium remains low though urine osmolality is on the low side
She is already off SSRI or other antidepressant therapy
Discussed with patient and
[2024-06-06 12:03] VITALS: BP 158/78
--- NOTE | 2024-06-06 12:06 | CM ---
CM met with pt bedside
Pt resides with her spouse and 30 y/o adult dtr
2SH with 2 GLADYS, 14 steps to 2nd floor
Indep, no DMEs, drives+, retired
Denies financial insecurities
PCP- Rupert Shipley
Rx- [facility]
Discharge Disposition- anticipate home no needs
[2024-06-06 15:03] LABS: Glycohemoglobin (HgbA1c) 7.5 % (4.0-5.6)
--- NOTE | 2024-06-06 15:10 | PTCARENOTE ---
Patient oriented to room and use of call orozco, TV and bed controls. Reviewed plan of care with patient. Patient verbalizes understanding of all teaching and denies questions. Vital signs stable. Denies pain. Patient resting comfortably in bed at
this time.
[2024-06-06 15:11] VITALS: BP 163/78
[2024-06-06 15:13] VITALS: BMI 20.5
[2024-06-06] MEDS: NOVOLOG FLEXPEN-LOW RESISTANCE SC ×2 (15:23→16:32)
[2024-06-06] MEDS: REFRESH EYE DROPS (PF) 1 DROPS BOTH EYES ×2 (15:56→23:30)
[2024-06-06] MEDS: NORVASC 2.5 MG PO (15:57)
[2024-06-06 16:17] LABS: Glucose - Point of Care 149 mg/dl (70-99)
--- NOTE | 2024-06-06 16:36 | CS.PSYCHR ---
Consult Summary - Psychiatry
-
Pt is a 64 yo female with hx of HTN, type II diabetes, anxiety/depression, who presented with subacute onset of dizziness confusion since February of this year. Pt was diagnosed with low sodium, was managed by PCP- Sertraline was stopped a month ago.
Pt's symptoms persisted; MRI of the brain was unremarkable. Outpatient lab revealed sodium 123; PCP referred pt to the ER. Patient also endorses history of drinking plain water. Pt reports significant stressors in life- father age 97 and
requiring care, sister recently diagnosed with cancer, dtr followed by [facility] for Schizoaffective d/o, issues with . Pt c/o decreased focus/ability to complete tasks; states activities she usually does without effort are more difficult,
such as cooking. also reportedly noticed a decline in pt's cognitive function over past 6 months. Pt states she had some seasonal depression, was less active. She c/o ongoing insomnia, is prescribed Ambien.
Psych Hx: was prescribed Prozac for years, with onset of menopause. Denies hx of severe depression or inpatient tx. Has had a therapist for 1 1/2 years- states not too helpful
SH: , lives with family. 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
has 1 to glasses of wine with dinner, denies problems from alcohol consumption
MSE: alert, oriented, calm, cooperative. Appears slightly disinhibited, thought she knew the creative services writer at first. Affect happy/pleasant, mildly incongruent, mood appears stable. No agitation, no signs of psychosis. Insight fair
Imp: Unspecified depression,anxiety, appears fairly stable at present. Possible mild cognitive decline. Ongoing insomnia
Rec: continue Ambien. Hold off antidepressant/antianxiety agents that can affect Sodium level
return to Outpatient therapy/ med mgt with PCP when medically cleared
Will follow
[2024-06-06 18:29] LABS: Blood Urea Nitrogen 16 mg/dl (7-17); Calcium 9.8 mg/dl (8.4-10.2); Carbon Dioxide 25 mmol/L (22-30); Chloride 97 mmol/L (98-107); Estimated Creatinine Clearance 64 ml/min; Glucose 133 mg/dl (70-99); Potassium 4.2 mmol/L (3.5-5.1); Sodium 130 mmol/L (135-145); eGFR > 60.00
[2024-06-06] MEDS: GLUCOPHAGE XR EXTENDED RELEASE 1000 MG PO (18:36)
[2024-06-06 19:00] VITALS: BP 139/73
[2024-06-06 21:55] LABS: Glucose - Point of Care 139 mg/dl (70-99)
[2024-06-06 23:00] VITALS: BP 118/73
[2024-06-06] MEDS: XALATAN OPHTHALMIC SOLUTION 1 DROP LEFT EYE (23:31)
[2024-06-06] MEDS: AMBIEN 10 MG PO (23:33)
[2024-06-07 03:00] VITALS: BP 132/58
--- NOTE | 2024-06-07 07:28 | W.PN.HOSP.TC ---
Today's Communication/Plan
-
discharge
Assessment / Plan
Assessment / Plan
Physical Exam
General: No pallor, cyanosis, or jaundice.
HEENT: Throat clear. PERRLA Normocephalic atraumatic
NECK: Supple. No JVD Carotid Bruits
RESPIRATORY: Lungs clear to auscultation. No crackles wheezes stridor
CVS: S1, S2 normal. RRR. No murmur, rub or gallop.
ABDOMEN: Soft, non-tender. No distension. BS+/normal.
EXTREMITIES: No peripheral cyanosis or edema.
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 Conversant coherent
IMPRESSION:
64-year-old female hypertension type II diabetic anxiety depression presents with subacute onset of dizziness confusion since February of this year, diagnosed with low sodium was managed by PCP, SSRI was stopped a month ago, symptoms persisted had an
MRI of the brain which was unremarkable no fevers, no cough, nondrinker non-smoker, patient outpatient blood work sodium 123 PCP referred to the ER. Retested 127 here corrected for hyperglycemia, 129. Mild Hyperkalemia 5.2 noted. Patient also
endorses history polydipsia polyuria. Reports significant stressors in life including sister recently diagnosed with cancer. also has notices decline in cognitive function over past 6 month.
PLAN:
#Hyponatremia
TeleMed
Nephro eval appreciated
Fluid restriction
Hypertonic saline as per nephro
Na since significantly improved 133
Discussed with Nephro, stable for discharge
# Hypertension
#Mild hyperkalemia
Monitor K
Hold home valsartan
Resume home amlodipine with holding parameters
BP remains stable at this time without valsartan, hyperkalemia also resolved, recommend to cont hold on discharge, outpt follow up with primary to determine when safe to resume, if necessary to resume, and/or if alternative medication is required.
#Diabetes
A1c 7.5
Low-dose sliding scale
Continue home med metformin
#Anxiety depression
#Question possible pseudodementia
Continue home bedtime zolpidem
P.o. Ativan as needed anxiety (has not required)
Psych eval appreciated
DVT prophylaxis Lovenox
Full code
Medically stable for discharge home with outpatient follow up recommendations.
Discussed with patient and patient's Johnson
Total Time Preparing Discharge ___40____ minutes including examination of the patient, summary of the hospital stay, instructions for continuing care to all relevant caregivers; and preparation of discharge records, prescriptions, and referral
forms if necessary.
Anticipated Discharge: Today
Subjective/Interval History
-
Date of Service: June 07, 2024
No acute distress. Reports feeling well. Eager to go home. Ambulatory without need for assist device.
Objective Data
-
Labs:
Laboratory Results
06/07/24
06:56
WBC Pending
Hgb Pending
Hct Pending
Plt Count Pending
Sodium Pending
Potassium Pending
Chloride Pending
Carbon Dioxide Pending
BUN Pending
Creatinine Pending
Glucose Pending
Calcium Pending
Vital Signs:
Vital Signs
Temp Pulse Resp BP Pulse Ox
98.2 F 67 18 132/58 99
06/07/24 03:00 06/07/24 03:00 06/07/24 03:00 06/07/24 03:00 06/07/24 03:00
[2024-06-07 07:30] LABS: Hematocrit 34.6 % (37.0-47.0); Mean Corp Hgb Conc. 34.7 g/dL (33.0-37.0); Mean Corpuscular Hgb 30.5 pg (27.0-31.0); Mean Platelet Volume 9.8 fL (7.4-10.4); Platelet Count 420 10^3/uL (130-400); Red Blood Cell Count 3.93 10^6/uL (4.20-5.40); Red Cell Dist. Width 12.3 % (11.5-14.5); White Blood Cell Count 8.4 10^3/uL (4.8-10.8)
[2024-06-07 07:41] LABS: Blood Urea Nitrogen 15 mg/dl (7-17); Calcium 10.2 mg/dl (8.4-10.2); Carbon Dioxide 26 mmol/L (22-30); Chloride 98 mmol/L (98-107); Estimated Creatinine Clearance 75 ml/min; Glucose 191 mg/dl (70-99); Magnesium 1.7 mg/dl (1.6-2.3); Potassium 4.4 mmol/L (3.5-5.1); Sodium 133 mmol/L (135-145); eGFR > 60.00
[2024-06-07] MEDS: THERAGRAN 1 TABLET PO (07:53)
[2024-06-07] MEDS: REFRESH EYE DROPS (PF) 1 DROPS BOTH EYES (07:53)
[2024-06-07] MEDS: NORVASC 2.5 MG PO (07:53)
[2024-06-07 08:10] LABS: Glucose - Point of Care 253 mg/dl (70-99)
[2024-06-07 08:12] VITALS: BP 136/87
[2024-06-07] MEDS: NOVOLOG FLEXPEN-LOW RESISTANCE 3 UNITS SC (08:26)
[2024-06-07] MEDS: TYLENOL 1000 MG PO (11:22)
[2024-06-07 11:39] LABS: Glucose - Point of Care 105 mg/dl (70-99)
[2024-06-07 11:41] VITALS: BP 147/77
[2024-06-07] MEDS: NOVOLOG FLEXPEN-LOW RESISTANCE SC (11:47)
--- NOTE | 2024-06-07 12:14 | W.DCSUMMARY ---
Discharge Summary
Discharge Data
Date of Admission: 06/06/24
Date of Discharge: 06/07/24
-
Pending Results: No
Discharge Plan
-
Patient Disposition: Home (Routine Discharge)
Discharge Diagnosis/Procedures: Hyponatremia
Hypertension
Mild hyperkalemia resolved
Diabetes A1c 7.5
Anxiety/depression
Cognitive Decline
Condition: Fair
Diet: Diabetic, Carb Controlled
Additional Diets: 50 oz Fluid Restriction
Activity: As tolerated
Driving Restrictions: Not until seen by your Dr
Bathing Restrictions: None
Blood Work: Repeat BMP Wednesday following discharge, results to be forwarded to Primary Care Provider, script provided to facilitate
Activity Restrictions/Additional Instructions:
Follow up with primary care provider in 1 week of discharge and neuropsychiatry in 2 weeks of discharge.
Hold Valsartan at this time due to hyperkalemia since resolved. Blood pressure also stable off Valsartan during your stay here. Follow up with primary care provider to determine when safe to resume, if necessary to resume, and/or if an alternative
agent is required instead.
Please keep a daily log of your pressures at home and review log with primary care provider for further evaluation/treatment hypertension.
Discuss with primary care provider regarding potentially reducing home Ambien versus discontinuing as a potential source of cognitive impairment.
Also recommended to abstain from alcohol use at this time as Alcohol can worsen/cause cognitive impairment. Alcohol can also interfere with other medications including Ambien
Instructions: Diabetes and diet
Referrals:
Rigoberto Monroy PSY [Specified Professional Personl] - in two weeks
Rupert Shipley MD [Family Provider] - in one week
Prescriptions:
Continued
latanoprost 0.005 % Drops
1 drp LEFT EYE HS
zolpidem 10 mg Tablet
10 mg PO HS
metformin 500 mg Tablet Extended Release 24hr
1,000 mg PO QPM
therapeutic multivitamin Tablet
1 tab PO DAILY
amlodipine [Norvasc] 2.5 mg Tablet
2.5 mg PO DAILY
Flarex 0.1 % Drops,Suspension
1 drp BOTH EYES DAILY
Refresh Optive 0.5-0.9 % Drops
1 drp BOTH EYES TID
Held
valsartan 160 mg Tablet
160 mg PO DAILY
Hold Instructions: Follow up with primary care provider to determine when safe to resume, if necessary to resume, and/or if an alternative agent is indicated instead.
Discharge Orders:
Discharge Patient (As Directed); Ordered 06/07/24
Ordered By: Amena Nelson
Discharge Date and Time
Print Language: SALVADOREAN
--- NOTE | 2024-06-07 12:45 | W.PN.NEPH.PH ---
Today's Communication / Plan
-
For discharge on 50 ounce fluid restrict
Follow-up BMP later this week sent to PCP
Assessment/Plan
-
Assessment
Hyponatremia
Hypertension
Anxiety
Hyperlipidemia
Prediabetes
Plan
Status post hypertonic saline 30 cc/h
Stable for discharge today as sodium up to 133
Urine osmolality of 185 was consistent with judicious fluid intake
Fluid restriction 48 ounces at discharge
She is already off SSRI or other antidepressant therapy
Discussed with patient and
She will need repeat BMP to be obtained later this week and sent to PCP
-
-
Date of Service: June 07, 2024
CC / HPI / ROS
-
Chief Complaint:
Hyponatremia
History of Present Illness:
Serum sodium up to 133 following hypertonic saline infusion
Hemodynamically stable on amlodipine
Review of Systems:
Cognitively improving
No chest pain or shortness of breath
Labs
-
Labs:
WBC 8.4 10^3/uL (4.8-10.8) 06/07/24 06:56
RBC 3.93 10^6/uL (4.20-5.40) L 06/07/24 06:56
Hgb 12.0 g/dL (12.0-16.0) 06/07/24 06:56
Hct 34.6 % (37.0-47.0) L 06/07/24 06:56
Plt Count 420 10^3/uL (130-400) H 06/07/24 06:56
Sodium 133 mmol/L (135-145) L 06/07/24 06:56
Potassium 4.4 mmol/L (3.5-5.1) 06/07/24 06:56
Chloride 98 mmol/L (98-107) 06/07/24 06:56
Carbon Dioxide 26 mmol/L (22-30) 06/07/24 06:56
BUN 15 mg/dl (7-17) 06/07/24 06:56
Creatinine 0.6 mg/dL (0.6-1.0) 06/07/24 06:56
eGFR > 60.00 06/07/24 06:56
Glucose 191 mg/dl (70-99) H 06/07/24 06:56
Calcium 10.2 mg/dl (8.4-10.2) 06/07/24 06:56
Albumin 4.3 g/dl (3.5-5.0) 06/06/24 07:03
Physical Exam
-
Vital Signs:
Vital Signs
Temp Pulse Resp BP Pulse Ox
98.1 F 69 18 147/77 98
06/07/24 11:41 06/07/24 11:41 06/07/24 11:41 06/07/24 11:41 06/07/24 11:41
Cardiovascular:: Regular rate and rhythm
Respiratory:: Bilateral: CTA
Lung Excursion:: Normal
Abdomen:: Nontender and Soft
Bowel Sounds:: Normal
Extremity Edema:: None: Bilateral:
Gaines Catheter: No
--- NOTE | 2024-06-07 13:23 | CM ---
Patient stable for d/c today. Per psych, return to Outpatient therapy/ med mgt with PCP
Private transport home
No CM needs identified at this time
Plan: Home, no needs
== END 2024-06-07 12:49 | disposition home or self-care (01) | DRG 641 ==
LOC: 4 EAST ACU 12:03
PROVIDERS: ADMITTING PHYSICIAN Internal Medicine; CONSULT PHYSICIAN Psychiatry & Neurology Psychiatry; CONSULT PHYSICIAN Specialist; EMERGENCY PHYSICIAN Emergency Medicine; FAMILY PHYSICIAN Family Medicine
DX: E87.1 Hypo-osmolality and hyponatremia (principal); E87.5 Hyperkalemia; I10 Essential (primary) hypertension; E11.65 Type 2 diabetes mellitus with hyperglycemia; F32.A Depression, unspecified; F41.9 Anxiety disorder, unspecified; Z88.2 Allergy status to sulfonamides; E78.5 Hyperlipidemia, unspecified; G47.00 Insomnia, unspecified; Z79.84 Long term (current) use of oral hypoglycemic drugs; Z79.899 Other long term (current) drug therapy
CPT/HCPCS: 71046; 80048; 80053; 82533; 82962; 83036; 83735; 83930; 83935; 84300; 84443; 85025; 85027; 93005; 99285